=== PATIENT | male | born 2000 | race Two or more races ===

== ENCOUNTER 2023-06-07 08:34 | Outpatient (AMB) | payer BC, SELFPAY ==
--- NOTE | 2023-06-07 08:36 | A.OFFVIS_ITS ---
Intake Vital Signs 06/07/23 08:44 Height 5 ft 11 in Weight 171 lb 6 oz BMI 23.9 BP 116/72 Blood Pressure Location Rt brachial Position Sitting Respiration 16 Pulse 81 Pulse Source Pulse Oximeter Pulse Oximetry (%) 97 Oxygen Delivery Method Room Air Intake Visit Reasons: ENP-Difficulty falling asleep/CONF Intake Note: Pt presents to the office for new pt evaluation for for difficulty with sleep. Pt reports he has had trouble falling asleep for 2 years now. Property Condition Assessor Required: No Allergies No Known Allergies Allergy (Verified 06/07/23 08:42) Medication List - Last Reconciled 06/07/23 by Elisabeth Preston MD albuterol sulfate 0.63 mg inhalation QID PRN albuterol sulfate 90 mcg/actuation 2 puffs inhalation Q6H PRN budesonide 180 mcg/actuation (Pulmicort Flexhaler) 1 inh inhalation DAILY cetirizine 10 mg PO DAILY PRN dextroamphetamine-amphetamine 15 mg (Adderall) 15 mg PO DAILY PRN dextroamphetamine-amphetamine 30 mg ER (Adderall XR) 30 mg PO QAM fluticasone propionate 50 mcg/actuation 1 spray intranasal DAILY montelukast (Singulair) 10 mg PO DAILY HPI HPI Comments History of Present Illness Details 23y/o male comes for evaluation of sleep issues.He has trouble falling asleep and does not feel rested when he wakes up. He is accompanied by his mom .About 2 years ago , the second year of school at he noticed difficulty falling asleep. He is tired but he had trouble stopping his thoughts. He tried melatonin 15 mg , benadryl, nyquil, it helped initially but stopped working . he also tried counting and relaxing. It has worsened progressively. He can get anxious when he cannot sleep but he had problems even when he was at home during summer. He tosses and turns but no abnormal sensations. no back pain, neck pain . No palpitations. Once he falls asleep he is able to sleep 8 hrs and in summer he can sleep for 10 hrs and still feels exhausted. He tries to sleep by midnight and now it takes few hrs. He sleeps around 6am - but has to wake up at 9 am for school.He does not nap. He has snoring. No witnessed apneas. He feels he clenches his jaw both at night and occasionally during daytime- he wears a retainer. School was stressful especially in his first year. He was diagnosed with ADD last year - started on Adderall 15 mg and 30mg qhs .His parents dont know about his diagnosis but he is able discuss with his sister. He has anxiety. He is a type A personality , always been on top of his class and is doing Premed at [employer]. He has good social life.He rarely takes alcohol socially . He wakes up with headaches and has restless legs. He lives in an apartment. He feels he gets very stressed at school. Now he recalls - even as a child he had difficulty winding down PFSH Medical History (Updated 06/07/23 @ 14:14 by Elisabeth Preston MD) Insomnia Anxiety ADD (attention deficit disorder) Asthma Hypersomnia Snoring Family History Mother Hyperlipemia Father Hyperlipemia Social History Household Members: Friend(s) Housing: Apartment Alcohol intake: never Patient Tobacco Use Status: Never used Tobacco Use of substances other than those prescribed or required for medical reasons: No Questionnaire Bryce Sleepiness Scale Questions Sitting and reading: moderate chance of dozing Watching TV: would never doze Sitting inactive in a theater, movie etc.: would never doze As a passenger in a car for an hour without break: slight chance of dozing Lying down in the afternoon when circumstances permit: slight chance of dozing Sitting and talking to someone: would never doze Sitting quietly after lunch without alcohol: slight chance of dozing In a car, while stopped for a few minutes in the traffic: would never doze ESS < 10: normal, ESS > 12: pathologic: 5 Physical Exam Vital Signs: Last Vital Signs Pulse 81 06/07/23 08:44 Resp 16 06/07/23 08:44 BP 116/72 06/07/23 08:44 Pulse Ox 97 06/07/23 08:44 Oxygen Delivery Method Room Air 06/07/23 08:44 BMI result Body Mass Index 23.9 Const General: cooperative, healthy appearing, comfortable and no acute distress Nutritional Appearance: average body habitus Orientation/consciousness: patient oriented x3 Eyes Pupils: Equal, round and reactive pupils present Neuro Other: Mallampatti grade 4 General: patient oriented x3, gait normal, tone normal, moves all extremities and no focal motor deficits Cranial nerves: Yes Equal, round and reactive pupils present, Yes Bilaterally intact EOM present, Yes Nystagmus not present, Yes Normal facial strength present and Yes Midline tongue present Cognition (Neuro): normal cognition Gait exam (Neuro): Normal gait present Motor exam (neuro): 5/5 motor strength present throughout and Normal motor muscle tone present throughout Deep tendon reflexes (DTR's): Right triceps reflex intensity grade: 2+, Left triceps reflex intensity grade: 2+, Rt Biceps (C5, C6): 2+, Left biceps reflex intensity grade: 2+, Right brachioradialis reflex intensity grade: 2+, Left brachioradialis reflex intensity grade: 2+, Right patellar reflex intensity grade: 2+ and Left patellar reflex intensity grade: 2+ Coordination: [id number] test normal Psych Affect: Anxious affect present Assessment & Plan Assessment & Plan (1) Insomnia: Comment: psychophysiological insomnia, ? poorly controlled mood? med effect Code(s): G47.00 - Insomnia, unspecified (2) Anxiety: Code(s): F41.9 - Anxiety disorder, unspecified (3) Snoring: Code(s): R06.83 - Snoring (4) Hypersomnia: Code(s): G47.10 - Hypersomnia, unspecified Plan I will evaluate him with asleep study to r/o sleep apnea, sleep related movement disorders Refer to Dr. Monahan for further assessment of ADD and possible anxiety Orders: Orders RT PSG in-lab sleep study 06/07/23 R06.83 - Snoring, G47.10 - Hypersomnia, unspecified Coding Level of Care Code New Pt Level 4 (19216) Diagnoses Insomnia G47.00 Anxiety F41.9 Snoring R06.83 Hypersomnia G47.10
[2023-06-07 08:44] VITALS: BP 116/72; PULSE 81; RESP 16; O2SAT 97; BMI 23.9
== END 2023-06-07 09:49 | disposition home or self-care (01) ==
LOC: HO.HSMC 08:34
PROVIDERS: PCP Pediatrics Adolescent Medicine; Visit Provider Psychiatry & Neurology Neurology
DX: G47.00 Insomnia, unspecified (principal); F41.9 Anxiety disorder, unspecified; R06.83 Snoring; G47.10 Hypersomnia, unspecified
CPT/HCPCS: 99204

== ENCOUNTER → 2023-06-07 08:34 | Outpatient (BNVA) | payer BC, SELFPAY | PROVIDERS: PCP Pediatrics Adolescent Medicine; Visit Provider Psychiatry & Neurology Neurology ==

== ENCOUNTER → 2023-08-13 14:52 | Outpatient (REF) | payer BC, SELFPAY | LOC: HO.SL 14:52 | PROVIDERS: PCP Pediatrics Adolescent Medicine; Visit Provider Psychiatry & Neurology Neurology | DX: G47.00 Insomnia, unspecified (principal); G47.10 Hypersomnia, unspecified; R06.83 Snoring | CPT/HCPCS: 95806 ==

== ENCOUNTER → 2023-08-13 15:04 | Outpatient (BNV) | payer BC, SELFPAY | PROVIDERS: PCP Pediatrics Adolescent Medicine; Visit Provider Psychiatry & Neurology Neurology | DX: R06.83 Snoring (principal) | CPT/HCPCS: 95806 ==